=== PATIENT | female | born 1990 | race Caucasian/White ===

== ENCOUNTER 2020-02-09 15:57 | Outpatient (REF) | payer OTHER, SELFPAY ==
[2020-02-09 16:46] LABS: COVID-19 Test Negative (Negative)
== END 2020-02-09 15:58 | disposition home or self-care (01) ==
LOC: HO.LAB 15:57
PROVIDERS: PCP Internal Medicine; Visit Provider Internal Medicine
DX: Z20.828 Contact with and (suspected) exposure to other viral communicable diseases (principal)
CPT/HCPCS: 87635

== ENCOUNTER 2020-03-22 14:22 | Outpatient (REF) | payer OTHER, SELFPAY ==
[2020-03-22 14:44] LABS: COVID-19 Test Negative (Negative)
== END 2020-03-22 14:23 | disposition home or self-care (01) ==
LOC: HO.EMPCOV 14:22
PROVIDERS: PCP Internal Medicine; Visit Provider Internal Medicine
DX: Z20.828 Contact with and (suspected) exposure to other viral communicable diseases (principal)
CPT/HCPCS: 87635; C9803

== ENCOUNTER 2020-07-18 14:02 | Outpatient (REF) | payer OTHER, SELFPAY | END 2020-07-18 14:03 | disposition home or self-care (01) | LOC: HO.HMGCLDS 14:02 | PROVIDERS: PCP Internal Medicine; Visit Provider Internal Medicine | DX: Z20.822 Contact with and (suspected) exposure to COVID-19 (principal) | CPT/HCPCS: C9803; U0003; U0005 ==

== ENCOUNTER 2020-08-10 14:28 | Outpatient (REF) | payer OTHER, SELFPAY ==
--- NOTE | ~2020-08-10 | XR_ITS ---
EXAMINATION: XR CHEST CLINICAL INFORMATION: Shortness of breath COMPARISON: Chest radiograph 08/05/2019 TECHNIQUE: 2 views of the chest were obtained. FINDINGS: The lungs are clear. The vascularity is normal. There is no airspace consolidation, groundglass opacity, or effusion. The heart is normal in size and the hilar and mediastinal contours and bony structures are unremarkable. XR/XR chest 2V IMPRESSION: Unremarkable examination.
== END 2020-08-10 14:29 | disposition home or self-care (01) ==
LOC: HO.HMGCX 14:28
PROVIDERS: PCP Internal Medicine; Visit Provider Nurse Practitioner Family
DX: R06.02 Shortness of breath (principal)
CPT/HCPCS: 71046

== ENCOUNTER 2020-11-24 09:30 | Outpatient (REF) | payer OTHER, SELFPAY | END 2020-11-24 09:31 | disposition home or self-care (01) | LOC: HO.EMPCOV 09:30 | PROVIDERS: PCP Internal Medicine; Visit Provider Internal Medicine | DX: Z20.822 Contact with and (suspected) exposure to COVID-19 (principal) | CPT/HCPCS: C9803; U0003; U0005 ==

== ENCOUNTER 2021-07-20 11:55 | Outpatient (REF) | payer BC, SELFPAY ==
[2021-07-20 12:18] LABS: Binax Internal Control QC Valid; Binax Now Covid-19 Ag Negative (Negative)
== END 2021-07-20 11:56 | disposition home or self-care (01) ==
LOC: HO.HMGCLDS 11:55
PROVIDERS: PCP Internal Medicine; Visit Provider Physician Assistant Medical
DX: Z13.89 Encounter for screening for other disorder (principal)

== ENCOUNTER 2022-07-09 08:06 | Emergency (ER) | payer OTHER, SELFPAY ==
--- NOTE | ~2022-07-09 | XR_ITS ---
EXAMINATION: XR ANKLE, RIGHT CLINICAL INFORMATION: Twisted ankle. Right ankle pain. COMPARISON: None available. TECHNIQUE: AP, lateral, and mortise views of the right ankle. FINDINGS: The talar dome is well-positioned within the intact ankle mortise. Ankle joint space and syndesmotic space are normal. No acute fracture or malalignment. Soft tissues are swollen at the lateral ankle. XR/XR ankle RT 2V IMPRESSION: * Lateral ankle soft tissue swelling is noted. * No acute fracture or subluxation.
[2022-07-09 08:07] VITALS: BP 136/83; PULSE 88; RESP 18; TEMP 36.1; O2SAT 100; BMI 36.9
[2022-07-09 09:25] VITALS: BP 119/36; PULSE 72; RESP 18; TEMP 36.4; O2SAT 100
--- NOTE | 2022-07-09 09:26 | PC.NURSE ---
patient a&ox3, rt ankle swelling noted, pt c/o 12/29 pain, ice applied for patient comfort, awaiting provider, xray previously taken, will continue to monitor.
--- NOTE | 2022-07-09 09:53 | ED_ITS ---
HPI - Extremity Injury (Lower) General Chief Complaint: Extremity Injury, Lower Stated Complaint: right ankle injury Time Seen by Provider: 07/09/22 09:15 Source: patient Mode of arrival: ambulatory Limitations: no limitations History of Present Illness HPI Narrative: This is a 32-year-old female presents emergency department with complaints of right ankle pain since this morning. Patient reports that she was getting ready to leave for work and accidentally stepped in a small hole/uneven pavement and twisted her right ankle. She denies LOC or hitting her head during this injury. Patient reports the she has been unable to bear weight on her right foot secondary to the pain. She admits to having some numbness and tingling on the medial aspect of her right ankle, but most of her pain is overlying her right lateral malleolus. Patient denies history of right ankle injuries in the past. No other complaints or concerns at this time. MD complaint: ankle injury Onset (ago): hour(s) Type of Injury: inversion Place: street/outdoors Severity: moderate Severity scale (1-10): 5 Relieving factors: nothing Exacerbating factors: nothing Context: walking Associated symptoms: swelling, numbness, tingling and unable to bear weight Other symptoms: none Related Data Previous Rx's Medication Instructions Recorded sumatriptan succinate 25 mg tablet See Rx Instructions PO .COMPLEX 30 01/29/21 days #30 tabs azithromycin 250 mg tablet See Rx Instructions PO .COMPLEX #6 07/20/21 tabs ibuprofen 600 mg tablet 600 mg PO TID PRN pain #30 tabs 07/20/21 ibuprofen 600 mg tablet 600 mg PO Q8H PRN pain #30 tabs 07/09/22 Allergies Allergy/AdvReac Type Severity Reaction Status Date / Time No Known Allergies Allergy Verified 07/09/22 08:11 [No Known Allergies*] Review of Systems Review of Systems: Yes all other systems are reviewed and are negative Constitutional: Constitutional: Reports no additional constitutional complaints, Denies body ache(s), Denies chills, Denies fever(s), Denies headache(s) and Denies weakness Eyes: Eyes: Reports no additional eye complaints and Denies change in vision ENT: Reports system reviewed and no additional complaints, except as documented, Denies dizziness, Denies headache(s), Denies nasal congestion, Denies nasal discharge and Denies neck pain Cardiovascular: Cardiovascular: Reports no additional cardiovascular complaints, Denies chest pain, Denies leg edema and Denies dyspnea Respiratory: Respiratory: Reports no additional respiratory complaints, Denies cough and Denies dyspnea Gastrointestinal: Gastrointestinal: Reports no additional gastrointestinal complaints, Denies abdominal pain, Denies diarrhea, Denies nausea and Denies vomiting Genitourinary: Genitourinary: Reports no additional female genitourinary complaints and Denies urinary incontinence Musculoskeletal: Musculoskeletal: Reports no additional musculoskeletal complaints, Denies back pain, Reports arthralgias, Reports joint swelling, Reports limited range of motion, Denies neck pain, Reports numbness, Reports stiffness and Reports tingling Integumentary/Breasts: Skin/Breast: Reports system reviewed and no additional complaints, except as docu and Denies rash Neurologic: Reports system reviewed and no additional complaints, except as documented, Denies Abnormal speech present, Denies dizziness, Denies headache(s), Reports numbness, Reports tingling and Denies weakness PMFSH Past Medical History Medical History Difficulty swallowing Social History Social History Alcohol intake: never Smoked in Last 30 Days: No Use of substances other than those prescribed or required for medical reasons: No Advance Directives: No Advance Directives Information Provided: Yes Physical Exam Vital Signs: Vital Signs: Last Vital Signs Temp 97.6 F 07/09/22 09:25 Pulse 72 07/09/22 09:25 Resp 18 07/09/22 09:25 BP 119/36 L 07/09/22 09:25 Pulse Ox 100 07/09/22 09:25 O2 Del Method 07/09/22 09:25 BMI result Body Mass Index 36.9 Const: General: cooperative, healthy appearing, comfortable and no acute distress Orientation/consciousness: patient oriented x3 Limitations: no limitations HEENT: Head: Yes normal to inspection Ears: hearing grossly normal bilaterally General nose exam: Normal external nose present Face and sinus: Yes normal facial exam Mouth: Normal oral and palatal mucosa present Throat: Yes posterior oropharynx normal Eyes: General: appearance normal, both eyes and all related structures Pupils: Equal, round and reactive pupils present Neck: Neck: Yes normal visual inspection Chest: Chest palpation & inspection: normal inspection of the chest Resp: Effort & Inspection: normal respiratory effort Auscultation: clear to auscultation bilaterally Cardio: Rate: regular rate Rhythm: regular rhythm Peripheral pulses: Peripheral pulses 2+ throughout GI: Inspection: Yes normal to inspection Palpation (GI): Soft to palpation and nontender Auscultation: normal bowel sounds Back/Spine/Pelvis: Thoracic/Lumbar Spine: thoracic and lumbar spine normal to inspection Skin: General skin exam: no rashes or lesions noted Neuro: General: patient oriented x3, no focal motor deficits and normal sensation to monofilament Cranial nerves: Yes Equal, round and reactive pupils present Cognition (Neuro): normal cognition Speech: No Abnormal speech present Gait exam (Neuro): Normal gait present Motor exam (neuro): 5/5 motor strength present throughout Extrem: Other: Right ankle with edema and tenderness wth palpation overlying the right lateral mallelous with limited range of motion secondary to pain. No tenderness over the tarsals or metatarsals. No ecchymosis, abrasions or open wounds. Distal sensation and circulation in tact. DP/PT pulses 2+. Negative jacobson's test. Medical Decision Making Medical Decision Making MDM Narrative: 32-year-old female presents to the emergency department for evaluation for right ankle pain status post inversion injury which occurred today. VSS. Right ankle with edema noted over the right lateral mallelous, distal sensation and circulation intact; no tenderness over the right foot. Right ankle x-ray shows lateral ankle soft tissue swelling with no acute fracture subluxation. Symptoms consistent with a right ankle sprain, patient right ankle placed in Ralf bandage pain and given crutches. Discussed importance of avoiding weight bearing for the next several days as well as icing and elevating. Given Ibuprofen rx. Patient understands and agrees with plan. Differential Diagnosis Differential Diagnoses: The differential diagnosis associated with the presentation includes Right ankle sprain, fracture, strain, contusion Independent Interpretation I performed an independent interpretation of an: Plain X-Ray Interpretation: I reviewed the right ankle x-ray and agree with radiologist reading. Radiology Impression Discussion of test interpretation with radiology: I have reviewed the r adiologist's reading. Radiologist Impression: EXAMINATION: XR ANKLE, RIGHT CLINICAL INFORMATION: Twisted ankle. Right ankle pain.? COMPARISON: None available.? TECHNIQUE: AP, lateral, and mortise views of the right ankle. FINDINGS: The talar dome is well-positioned within the intact ankle mortise. Ankle joint space and syndesmotic space are normal. No acute fracture or malalignment. Soft tissues are swollen at the lateral ankle.? XR/XR ankle RT 2V IMPRESSION: *? Lateral ankle soft tissue swelling is noted. *? No acute fracture or subluxation. Prescription Management I considered prescription management with: Pain Medication Critical Care Time Critical Care Time Critical Care Time: No Discharge Plan Discharge Clinical Impression: Ankle sprain and strain Patient Disposition: Home, Self-Care Instructions: Ankle Sprain (ED) Additional Instructions: rest, elevation Use Ralf wrap in the crutches the next few days Then perform a gentle stretching and range of motion of the ankle. Prescriptions: New ibuprofen 600 mg tablet 600 mg PO Q8H PRN (Reason: pain) Qty: 30 0RF No Action sumatriptan succinate 25 mg tablet See Rx Instructions PO .COMPLEX 30 Days Qty: 30 1RF Rx Instructions: take 1 tab at onset of headache; if no relief may repeat 1 tab after at least 2 hrs; max = 4 tabs/24 hr PO ibuprofen 600 mg tablet 600 mg PO TID PRN (Reason: pain) Qty: 30 0RF azithromycin 250 mg tablet See Rx Instructions PO .COMPLEX Qty: 6 0RF Rx Instructions: take 500 mg today (day 1), then 250 mg for 4 days (days 2-5) PO Referrals: Zana Uriarte MD [Primary Care Provider] - 1 week Stand Alone Forms: Work/School Release Interventions: ED Discharge Assessment Last Done: 07/09/22 10:18 Discharge Date/Time: 07/09/22 10:50
== END 2022-07-09 10:50 | disposition home or self-care (01) ==
PROVIDERS: Emergency Provider Emergency Medicine; PCP Internal Medicine
DX: S93.401A Sprain of unspecified ligament of right ankle, initial encounter (principal); X50.1XXA Overexertion from prolonged static or awkward postures, initial encounter; Y93.9 Activity, unspecified; Y92.9 Unspecified place or not applicable; Y99.9 Unspecified external cause status
CPT/HCPCS: 73600; 99283; 99284